=== PATIENT | female | born 1990 | race Caucasian/White ===

== ENCOUNTER 2019-04-28 13:47 | Emergency (ER) | payer BC ==
[~2019-04-28] VITALS: Ht 162.6 cm; Wt 59.0 kg
[2019-04-28 13:54] VITALS: BP 130/89
--- NOTE | 2019-04-28 14:00 | NUR ---
ED Nurse Note: pt requesting prescription for her migraine headaches. denies other complaints
--- NOTE | 2019-04-28 14:05 | Emergency Room Report ---
History of Present Illness General Chief Complaint: Headache Source: Patient Present Illness HPI 28-year-old female with history of depression currently taking Effexor and Wellbutrin here complaining of 2 days of 10 out of 10 sore throat and headache. Denies fever and chills, cough and congestion, nausea vomiting, abdominal pain. Patient reports that she last took her depression medication 2 days ago as she ran out of medication and does not have an upcoming appointment with her psychiatrist until another few weeks. Patient denies suicidal and homicidal ideations. Requesting a refill of her medication. Patient reports that she takes Effexor 25 mg daily as well as Wellbutrin 300 mg daily. Patient in mild distress that she is crying as is concerned about her depression worsening due to not taking the medication. Allergies: Coded Allergies: No Known Allergies (Unverified , 04/28/19) Patient History Past Medical History: see triage record Past Surgical History: unable to obtain Pertinent Family History: none Last Menstrual Period: 04/26/19 Now: No Immunizations: UTD Reviewed Nursing Documentation: PMH: Agreed; PSxH: Agreed Nursing Documentation-PMH Past Medical History: No History, Except For History Of Psychiatric Problem: Yes - Depression Review of Systems All Other Systems: negative except mentioned in HPI Physical Exam Vital Signs Date Time Temp Pulse Resp B/P (MAP) Pulse Ox O2 Delivery O2 Flow Rate FiO2 04/28/19 13:50 97.9 88 20 130/89 (103) 95 Room Air Sp02 EP Interpretation: reviewed, normal General Appearance: no apparent distress, alert, GCS 15, non-toxic Head: normocephalic, atraumatic Eyes: bilateral eye normal inspection, bilateral eye PERRL ENT: hearing grossly normal, no angioedema, normal voice, TMs + canals normal, uvula midline, tonsillar swelling, pharyngeal erythema, tonsillar exudate Neck: full range of motion, supple, thyroid normal, no meningismus, no bony tend, no carotid bruits, supple/symm/no masses Respiratory: chest non-tender, lungs clear, normal breath sounds, no rhonchi, no respiratory distress, no retraction, no accessory muscle use, no wheezing, speaking full sentences Cardiovascular #1: regular rate, rhythm, no edema, no murmur Cardiovascular #2: 2+ carotid (R), 2+ carotid (L) Gastrointestinal: normal bowel sounds, non tender, soft, non-distended, no guarding, no rebound Rectal: deferred Genitourinary: no CVA tenderness Musculoskeletal: back normal, gait/station normal, normal range of motion, non- tender, no calf tenderness Neurologic: alert, oriented x3, responsive, motor strength/tone normal, sensory intact, cerebellar normal, normal gait, speech normal, no Babinski Psychiatric: judgement/insight normal, memory normal, mood/affect normal, no suicidal/homicidal ideation, anxious Skin: no rash Lymphatic: no adenopathy Medical Decision Making PA Attestation All diagnoses and treatment plans were reviewed and discussed with my supervising physician Dr. Swan Diagnostic Impression: Primary Impression: Strep pharyngitis Additional Impressions: Medication refill Depression ER Course 28-year-old female with history of depression currently taking Effexor and Wellbutrin here complaining of 2 days of 10 out of 10 sore throat and headache. Denies fever and chills, cough and congestion, nausea vomiting, abdominal pain. Patient reports that she last took her depression medication 2 days ago as she ran out of medication and does not have an upcoming appointment with her psychiatrist until another few weeks. Patient denies suicidal and homicidal ideations. Requesting a refill of her medication. Patient reports that she takes Effexor 25 mg daily as well as Wellbutrin 300 mg daily. Patient in mild distress that she is crying as is concerned about her depression worsening due to not taking the medication. Ddx considered but are not limited to: strep pharyngitis, URI, tonsillitis, peritonsillar abscess, influneza Vital signs: are WNL, pt. is afebrile H&PE are most consistent with: Strep pharyngitis, medication refill for depression controlled ORDERS: Wellbutrin, Effexor, amoxicillin ED INTERVENTIONS: None required at this time. DISCHARGE: At this time pt. is stable for d/c to home. Will provide printed patient care instructions, and any necessary prescriptions. Care plan and follow up instructions have been discussed with the patient prior to discharge. Take medication as directed, follow-up with your psychiatrist regarding refill of venlafaxine and Effexor I can only write them for 2 weeks patient agrees with the above treatment. If worsening symptoms return to the emergency room Last Vital Signs Date Time Temp Pulse Resp B/P (MAP) Pulse Ox O2 Delivery O2 Flow Rate FiO2 04/28/19 13:54 97.9 83 20 130/89 95 Room Air Disposition: HOME, SELF-CARE Condition: Stable Scripts Amoxicillin* (AMOXIL*) 500 Mg Capsule 500 MG ORAL EVERY 12 HOURS for 10 Days, #20 CAP Prov: Isak Alejandro 04/28/19 Venlafaxine Hcl* (EFFEXOR*) 25 Mg Tablet 25 MG ORAL DAILY for 14 Days, #14 TAB Prov: Isak Alejandro 04/28/19 Bupropion Hcl* (WELLBUTRIN*) 300 Mg Tab.er.24h 300 MG ORAL DAILY for 14 Days, #14 TAB 0 Refills Prov: Isak Alejandro 04/28/19 Patient Instructions: Depression, Adult, [id number], Pharyngitis, Easy-to- Read Additional Instructions: Take medication as directed, follow-up with your primary care provider and establish psychiatrist in regards to your depression. If worsening symptoms return to the emergency room. Headache can be secondary to abruptly stopping your depression medication. Isak Alejandro Apr 28, 2019 14:05
[2019-04-28] MEDS ORDERED: VENLAFAXINE HCL25 MG ORAL (14:08)
[2019-04-28] MEDS ORDERED: BUPROPION XL300 MG ORAL (14:08)
[2019-04-28] MEDS ORDERED: AMOXICILLIN500 MG ORAL (14:08)
[2019-04-28 14:14] VITALS: BP 125/85
--- NOTE | 2019-04-28 14:14 | NUR ---
ED Nurse Note: pt dc per ermd order, pt given precription and dc instructions; pt verbalized understanding. pt took all belongings. denies increase of pain at this time.
== END 2019-04-28 14:14 | disposition home or self-care (01) ==
LOC: EMR 14:00
DX: J02.0 Streptococcal pharyngitis (principal); F32.9 Major depressive disorder, single episode, unspecified
CPT/HCPCS: 99282